=== PATIENT | male | born 1995 | race African-American/Black ===

== ENCOUNTER 2020-10-14 01:21 | Emergency (ER) | payer OTHER ==
[~2020-10-14] VITALS: Ht 162.6 cm; Wt 65.9 kg
--- NOTE | 2020-10-14 02:50 | REPVR ---
PROCEDURE INFORMATION: Exam: XR Complete Acute Abdomen Series Exam date and time: 10/14/2020 2:16 AM Age: 25 years old Clinical indication: Other: R/O sbo TECHNIQUE: Imaging protocol: XR complete acute abdomen series, including 2 or more views of the abdomen and a single view chest. COMPARISON: No relevant prior studies available. FINDINGS: Lungs: Normal. No consolidation. Pleural spaces: Normal. No pleural effusions. No pneumothorax. Heart/Mediastinum: Normal. No cardiomegaly. Gastrointestinal tract: Copious stool in the colon. Distended loops of small bowel in the right mid abdomen. Intraperitoneal space: Normal. No free air. Bones/joints: Normal. No acute fracture. Soft tissues: Normal. IMPRESSION: 1. No acute infiltrate. 2. Copious stool in the colon. 3. Distended loops of small bowel in the right mid abdomen. Small bowel obstruction cannot be excluded. Electronically signed by: Thad Camacho On 10/14/2020 02:50:07 AM
[2020-10-14] MEDS ORDERED: MIRA3350 PO (04:52)
[2020-10-14 04:59] VITALS: BP 167/91
--- NOTE | 2020-10-15 07:14 | ED PDOC ---
Post-Departure Follow-Up radiology report faxed to [facility] Nati Aldridge MD Oct 15, 2020 07:14
== END 2020-10-14 05:13 | disposition home or self-care (01) ==
LOC: M ED 01:21
DX: K59.00 Constipation, unspecified (principal)